=== PATIENT | male | born 1965 | race Caucasian/White ===

== ENCOUNTER 2021-09-04 17:12 | Inpatient (IN) | payer BC, OTHER ==
[~2021-09-04] VITALS: Ht 177.8 cm; Wt 101.6 kg
[2021-09-04 17:52] LABS: HEMOGLOBIN 16.7 gm/dl (14.0-17.5); RED BLOOD COUNT 5.26 M/UL (4.20-5.50); WHITE BLOOD COUNT 7.3 K/UL (4.5-11.0)
[2021-09-04 18:15] LABS: BUN/CREATININE RATIO 17 (0-10)
[2021-09-04] MEDS ORDERED: PROZAC40 MG PO (20:52)
[2021-09-04] MEDS ORDERED: BAYER CHEWABLE81 MG PO (20:53)
[2021-09-04] MEDS ORDERED: PROTONIX40 MG PO (20:53)
[2021-09-04] MEDS ORDERED: COZAAR100 MG PO (20:54)
[2021-09-04] MEDS ORDERED: RANOLAZINE ER500 MG PO (20:55)
[2021-09-04] MEDS ORDERED: ZEBETA 5 MG TAB5 MG PO (20:55)
[2021-09-04] MEDS ORDERED: HYDROCHLOROTH12.5 MG PO (20:56)
[2021-09-04] MEDS ORDERED: BUSPIRONE HCL30 MG PO (20:56)
[2021-09-05 05:03] LABS: HEMOGLOBIN 13.9 gm/dl (14.0-17.5); RED BLOOD COUNT 4.67 M/UL (4.20-5.50); WHITE BLOOD COUNT 4.7 K/UL (4.5-11.0)
[2021-09-05 05:23] LABS: BUN/CREATININE RATIO 15 (0-10)
[2021-09-07 08:36] LABS: BUN/CREATININE RATIO 13 (0-10)
--- NOTE | 2021-09-07 08:44 | NUR ---
PATIENT STATED HE WANTED TO TAKE PILLS WHEN HE CAME BACK FROM HEART CATHETERIZATION.
[2021-09-08 03:43] LABS: HEMOGLOBIN 14.4 gm/dl (14.0-17.5); RED BLOOD COUNT 4.66 M/UL (4.20-5.50); WHITE BLOOD COUNT 5.4 K/UL (4.5-11.0)
[2021-09-08 04:05] LABS: BUN/CREATININE RATIO 12 (0-10)
[2021-09-08] MEDS ORDERED: ATORVASTATIN CA20 MG PO (09:18)
[2021-09-08] MEDS ORDERED: FENOFIBRATE145 MG PO (09:18)
[2021-09-08] MEDS ORDERED: AMLODIPINE BESYL5 MG PO (09:31)
[2021-09-08] MEDS ORDERED: PLAVIX 75 MG TA75 MG PO (09:31)
[2021-09-08] MEDS ORDERED: NITROGLYCERIN0.4 MG SL (09:31)
== END 2021-09-08 11:29 | disposition home or self-care (01) | DRG 247 ==
LOC: ER1 17:12 → MED SURG 4 19:25 → CDU 19:25 → PROG CARE 19:25 → MED SURG 4 21:33 → PROG CARE 09-07 12:33
PROVIDERS: Physician Assistant; ADMIT Internal Medicine
PROC: B24BZZZ Ultrasonography of Heart with Aorta (ICD-10-PCS; principal; 2021-09-05)
PROC: 027034Z Dilation of Coronary Artery, One Artery with Drug-eluting Intraluminal Device, Percutaneous Approach (ICD-10-PCS; 2021-09-07)
PROC: 4A023N7 Measurement of Cardiac Sampling and Pressure, Left Heart, Percutaneous Approach (ICD-10-PCS; 2021-09-07)
PROC: B2111ZZ Fluoroscopy of Multiple Coronary Arteries using Low Osmolar Contrast (ICD-10-PCS; 2021-09-07)
DX: I25.110 Atherosclerotic heart disease of native coronary artery with unstable angina pectoris (principal); N17.9 Acute kidney failure, unspecified; E86.0 Dehydration; Z20.822 Contact with and (suspected) exposure to COVID-19; I12.9 Hypertensive chronic kidney disease with stage 1 through stage 4 chronic kidney disease, or unspecified chronic kidney disease; D75.1 Secondary polycythemia; N18.30 Chronic kidney disease, stage 3 unspecified; F41.9 Anxiety disorder, unspecified; F43.10 Post-traumatic stress disorder, unspecified; F32.A Depression, unspecified; E66.9 Obesity, unspecified; G47.33 Obstructive sleep apnea (adult) (pediatric); Z95.1 Presence of aortocoronary bypass graft; Z79.01 Long term (current) use of anticoagulants; Z79.82 Long term (current) use of aspirin; Z89.012 Acquired absence of left thumb; Z82.49 Family history of ischemic heart disease and other diseases of the circulatory system; Z83.3 Family history of diabetes mellitus; Z68.32 Body mass index [BMI] 32.0-32.9, adult; I25.2 Old myocardial infarction
CPT/HCPCS: ECHO; 36415; 70450; 71045; 80048; 80053; 80061; 80307; 82140; 82550; 82553; 82607; 82746; 83036; 83735; 83874; 84484; 85025; 85347; 92978; 93005; 93306; 96374; 96375; 99152; 99153; 99285; C1725; C1753; C1769; C1874; C1887; C1894; C9600; G0378; J0461; J1644; J1650; J2060; J2250; J2270; J2405; J3010; J3246; J7040; Q9967; U0002

== ENCOUNTER 2022-06-06 12:31 | Inpatient (IN) | payer MEDICARE, OTHER ==
[~2022-06-06] VITALS: Ht 177.8 cm; Wt 115.7 kg
[~2022-06-06 12:31] MED LIST: AMLODIPINE BESYL5 MG PO; ATORVASTATIN CA20 MG PO; BAYER CHEWABLE81 MG PO; BUSPIRONE HCL30 MG PO; COZAAR100 MG PO; FENOFIBRATE145 MG PO; HYDROCHLOROTH12.5 MG PO; NITROGLYCERIN0.4 MG SL; PLAVIX 75 MG TA75 MG PO; PROTONIX40 MG PO; PROZAC40 MG PO; RANOLAZINE ER500 MG PO; ZEBETA 5 MG TAB5 MG PO
[2022-06-06 13:33] LABS: HEMOGLOBIN 14.8 gm/dl (14.0-17.5); RED BLOOD COUNT 5.01 M/UL (4.20-5.50); WHITE BLOOD COUNT 5.8 K/UL (4.5-11.0)
[2022-06-06] MEDS ORDERED: FENOFIBRATE145 MG PO (15:28)
[2022-06-06] MEDS ORDERED: CLOPIDOGREL75 MG PO (15:28)
[2022-06-06] MEDS ORDERED: HYDROCHLOROTH12.5 MG PO (15:29)
[2022-06-06] MEDS ORDERED: LEVOTHYROXINE25 MCG PO (15:29)
[2022-06-06] MEDS ORDERED: ATORVASTATIN CA20 MG PO (15:29)
[2022-06-06] MEDS ORDERED: AMLODIPINE BES2.5 MG PO (15:29)
[2022-06-06] MEDS ORDERED: NITROGLYCERIN0.4 MG SL (15:30)
[2022-06-06] MEDS ORDERED: ZEBETA 5 MG TAB5 MG PO (15:30)
--- NOTE | 2022-06-06 21:16 | NUR ---
NOTIFIED DR KING OF ELEVEATED [facility] OF 12.4. RECIEVED NO NEW ORDERS. WILL CONTINUE TO MONITOR.
[2022-06-07 02:32] LABS: HEMOGLOBIN 13.9 gm/dl (14.0-17.5); RED BLOOD COUNT 4.69 M/UL (4.20-5.50); WHITE BLOOD COUNT 6.2 K/UL (4.5-11.0)
--- NOTE | 2022-06-07 09:52 | NUR ---
0952- PT COMPLAINING OF CHEST PAIN, STATES IT IS THE SAME PAIN HE WAS FEELING YESTERDAY. BP 115/61 PULSE 59. I WAS EXAMING PT RJ PHIPPS WALKED IN AND WAS NOTIFIED OF PTS CONDITION. WILL CONTINUE TO MONITOR.
--- NOTE | 2022-06-07 11:34 | NUR ---
1134- NOTIFIED DR SANCHEZ ON CRITICAL LAB. [facility] 15.7. NO NEW ORDERS AT THIS TIME.
[2022-06-08 04:33] LABS: HEMOGLOBIN 13.7 gm/dl (14.0-17.5); RED BLOOD COUNT 4.68 M/UL (4.20-5.50); WHITE BLOOD COUNT 5.6 K/UL (4.5-11.0)
--- NOTE | 2022-06-08 09:39 | NUR ---
RN SPOKE WITH DR. RUBIO ABOUT PATIENT'S KDINEY LEVELS AND NEW ORDERS PER DR. VELASQUEZ IF SHE PROCEDED WITH THE HEART CATH. MD STATED PATIENT COULD EAT AND SHE WOULD TALK TO HIM ABOUT MOVING FORWARD. RN NOTIFIED PATIENT AND FAMILY AT BEDSIDE.
[2022-06-09 07:01] LABS: HEMOGLOBIN 13.2 gm/dl (14.0-17.5); RED BLOOD COUNT 4.5 M/UL (4.20-5.50)
[2022-06-10 02:47] LABS: WHITE BLOOD COUNT 5.3 K/UL (4.5-11.0)
[2022-06-10 02:52] LABS: RED BLOOD COUNT 5.05 M/UL (4.20-5.50)
[2022-06-10] MEDS ORDERED: IPRAT-ALBUT 0.5-3 ML NEB (11:59)
[2022-06-10] MEDS ORDERED: LIPITOR80 MG PO (11:59)
[2022-06-10] MEDS ORDERED: SYMBICORT 80-10.2 GM INH (12:00)
[2022-06-10] MEDS ORDERED: PREDNISONE 20 M20 MG PO (12:00)
[2022-06-10] MEDS ORDERED: JARDIANCE25 MG PO (12:08)
[2022-06-11 07:11] LABS: HBSAG SCREEN Negative (Negative); HCV AB 0.2 (0.0-0.9); HEP A AB, IGM Negative (Negative); HEP B CORE AB, IGM Negative (Negative)
== END 2022-06-10 15:12 | disposition home or self-care (01) | DRG 302 ==
LOC: ER1 12:31 → CDU 15:28 → M/S 15:28
PROVIDERS: Internal Medicine Infectious Disease; Internal Medicine Nephrology; Physician Assistant; Physician Assistant Medical; ADMIT Internal Medicine
PROC: B24BZZZ Ultrasonography of Heart with Aorta (ICD-10-PCS; principal; 2022-06-07)
DX: I25.10 Atherosclerotic heart disease of native coronary artery without angina pectoris (principal); J96.01 Acute respiratory failure with hypoxia; N17.9 Acute kidney failure, unspecified; I12.9 Hypertensive chronic kidney disease with stage 1 through stage 4 chronic kidney disease, or unspecified chronic kidney disease; N18.31 Chronic kidney disease, stage 3a; Z20.822 Contact with and (suspected) exposure to COVID-19; E66.9 Obesity, unspecified; E78.5 Hyperlipidemia, unspecified; D45 Polycythemia vera; F41.9 Anxiety disorder, unspecified; E11.65 Type 2 diabetes mellitus with hyperglycemia; F32.A Depression, unspecified; E11.22 Type 2 diabetes mellitus with diabetic chronic kidney disease; J44.9 Chronic obstructive pulmonary disease, unspecified; Z79.52 Long term (current) use of systemic steroids; Z82.49 Family history of ischemic heart disease and other diseases of the circulatory system; Z95.5 Presence of coronary angioplasty implant and graft; Z89.012 Acquired absence of left thumb; Z79.82 Long term (current) use of aspirin; Z79.899 Other long term (current) drug therapy; Z83.3 Family history of diabetes mellitus; Z68.36 Body mass index [BMI] 36.0-36.9, adult
CPT/HCPCS: ECHO; 36415; 71045; 80048; 80053; 80061; 80074; 81001; 82550; 82553; 82962; 83036; 83735; 83880; 84484; 85025; 85027; 86140; 93005; 93306; 94640; 94664; 94760; 96374; 96375; 96376; 99285; G0378; J2270; J2405; J2920

== ENCOUNTER → 2022-07-13 | Outpatient (CLI) | payer MEDICARE, OTHER ==
[~2022-07-13] MED LIST changes: +AMLODIPINE BES2.5 MG PO; +CLOPIDOGREL75 MG PO; +IPRAT-ALBUT 0.5-3 ML NEB; +JARDIANCE25 MG PO; +LEVOTHYROXINE25 MCG PO; +LIPITOR80 MG PO; +PREDNISONE 20 M20 MG PO; +SYMBICORT 80-10.2 GM INH
== END ==
LOC: HEART 5 08:09
DX: I25.10 Atherosclerotic heart disease of native coronary artery without angina pectoris (principal); Z95.1 Presence of aortocoronary bypass graft; Z98.61 Coronary angioplasty status
CPT/HCPCS: 78452; A9502; J2785